=== PATIENT | male | born 1980 | race Two or more races ===

== ENCOUNTER 2022-12-14 16:44 | Inpatient (IN) | payer OTHER ==
[~2022-12-14] VITALS: Ht 180.3 cm; Wt 75.0 kg
[2022-12-14] MEDS ORDERED: LORazepam 2 MG/ML VIAL IVP ONE (17:15)
[2022-12-14] MEDS ORDERED: ONDANSETRON HCL 4 MG/2 ML VIAL IVP ONE (17:15)
[2022-12-14] MEDS ORDERED: SODIUM CHLORIDE 0.9% 1,000 ML IV ONE ×2 (17:15→19:15)
[2022-12-14 17:47] LABS: BASOPHILS % (AUTO) 0.2 % (0.0-2.0); EOSINOPHILS % (AUTO) 0.1 % (1.0-6.0); HEMATOCRIT 38.9 % (41-53); HEMOGLOBIN 13.4 g/dL (13.5-17.5); LYMPHOCYTES # (AUTO) 1.5 K/uL (1.0-4.8); LYMPHOCYTES % (AUTO) 17.4 % (22.0-44.0); MEAN CORPUSCULAR HEMOGLOBIN 31.4 pg (26.0-34.0); MEAN CORPUSCULAR HGB CONC 34.5 G/dL (31.0-37.0); MEAN CORPUSCULAR VOLUME 91 fL (80-100); MONOCYTES # (AUTO) 0.4 K/uL (0.1-1.0); MONOCYTES % (AUTO) 4.5 % (2.0-9.0); NEUTROPHILS # (AUTO) 6.6 K/uL (1.8-7.7); NEUTROPHILS % (AUTO) 77.8 % (40.0-70.0); PLATELET COUNT (AUTO) 261 K/uL (150-450); RED BLOOD CELL COUNT(AUTO) 4.28 MIL/uL (4.50-5.90)
[2022-12-14 17:53] LABS: AMPHET/METH SCREEN,URINE NEGATIVE (NEGATIVE); BARBITURATE SCREEN, URINE NEGATIVE (NEGATIVE); BENZODIAZEPINES SCREEN,URINE NEGATIVE (NEGATIVE); CANNABINOID SCREEN,URINE NEGATIVE (NEGATIVE); COCAINE SCREEN,URINE NEGATIVE (NEGATIVE); METHADONE SCREEN, URINE NEGATIVE (NEGATIVE); OPIATE SCREEN,URINE NEGATIVE (NEGATIVE); PHENCYCLIDINE SCREEN,URINE NEGATIVE (NEGATIVE)
[2022-12-14 17:54] LABS: ANION GAP 12 mmol/L (8-16); CALCIUM, TOTAL 9.2 mg/dL (8.8-10.5); CARBON DIOXIDE 27 mmol/L (22-29); CHLORIDE 92 mmol/L (98-107); CREATININE 0.65 mg/dL (0.60-1.30); GLOMERULAR FILTR. RATE CALC > 60 mL/min (>60); GLUCOSE,RANDOM 100 mg/dL (70-110); POTASSIUM 3.9 mmol/L (3.5-5.1); SODIUM SERUM 131 mmol/L (136-145)
[2022-12-14 18:00] LABS: ALANINE AMINOTRANSFERASE 35 U/L (12-78); ALKALINE PHOSPHATASE 94 U/L (46-116); ASPARTATE AMINOTRANSFERASE 42 U/L (15-37); BILIRUBIN,TOTAL 0.8 mg/dL (0.1-1.0); TOTAL PROTEIN, SERUM 7.3 g/dL (6.4-8.2)
[2022-12-14] MEDS ORDERED: ACETAMINOPHEN 325 MG TABLET PO PRN (19:15)
[2022-12-14] MEDS ORDERED: MAGNESIUM HYDROXIDE SUSPENSION 30 ML UDCUP PO PRN (19:15)
[2022-12-14] MEDS ORDERED: ONDANSETRON HCL 4 MG/2 ML VIAL IVP PRN (19:15)
[2022-12-14] MEDS: LORazepam 2 MG/ML VIAL IVP PRN (21:38)
[2022-12-14] MEDS: FAMOTIDINE 20 MG TABLET PO SCH (21:38)
[2022-12-15 03:01] LABS: APPEARANCE,URINE CLEAR (CLEAR); BILIRUBIN,URINE NEGATIVE (NEGATIVE); GLUCOSE, URINE (UA) NEGATIVE (NEGATIVE); KETONES,URINE NEGATIVE (NEGATIVE); LEUKOCYTE ESTERASE ,URINE NEGATIVE (NEGATIVE); NITRATE,URINE NEGATIVE (NEGATIVE); OCCULT BLOOD,URINE NEGATIVE (NEGATIVE); PROTEIN,URINE NEGATIVE (NEGATIVE); SPECIFIC GRAVITIY, URINE 1.007 (1.003-1.030); UROBILINOGEN,URINE <=1.0 mg/dL (<=1.0)
[2022-12-15] MEDS: LORazepam 2 MG/ML VIAL IVP PRN ×3 (05:50→20:11)
[2022-12-15] MEDS ORDERED: TRAZ-257 PO (06:58)
[2022-12-15] MEDS ORDERED: HYDR-3831 PO (06:58)
[2022-12-15] MEDS: MULTIVITAMINS WITH MINERALS, THERAPEUTIC TABLET PO SCH (09:04)
[2022-12-15] MEDS: FAMOTIDINE 20 MG TABLET PO SCH ×2 (09:04→20:11)
[2022-12-15] MEDS: SODIUM CHLORIDE 0.9% 1,000 ML IV SCH ×2 (09:05→22:57)
[2022-12-15 17:30] VITALS: BP 142/88; PULSE 84; RESP 18; TEMP 98
[2022-12-15 19:57] VITALS: BP 143/101; PULSE 67; RESP 20; TEMP 97.5
[2022-12-15 20:49] VITALS: BP 121/89; PULSE 67; RESP 20
[2022-12-15] MEDS: ZOLPIDEM TARTRATE 5 MG TABLET PO PRN (22:56)
[2022-12-16 05:24] VITALS: BP 138/96; PULSE 66; RESP 20; TEMP 98.4
[2022-12-16 07:09] LABS: ANION GAP 10 mmol/L (8-16); CALCIUM, TOTAL 6.7 mg/dL (8.8-10.5); CARBON DIOXIDE 23 mmol/L (22-29); CHLORIDE 110 mmol/L (98-107); CREATININE 0.51 mg/dL (0.60-1.30); GLOMERULAR FILTR. RATE CALC > 60 mL/min (>60); GLUCOSE,RANDOM 76 mg/dL (70-110); POTASSIUM 3.1 mmol/L (3.5-5.1); SODIUM SERUM 143 mmol/L (136-145)
[2022-12-16] MEDS: MULTIVITAMINS WITH MINERALS, THERAPEUTIC TABLET PO SCH (08:02)
[2022-12-16] MEDS: LORazepam 2 MG/ML VIAL IVP PRN (08:02)
[2022-12-16] MEDS: FAMOTIDINE 20 MG TABLET PO SCH ×2 (08:02→20:25)
[2022-12-16] MEDS ORDERED: POTASSIUM CHLORIDE 20 MEQ ER TABLET PO ONE (09:00)
[2022-12-16] MEDS ORDERED: LORazepam 2 MG/ML VIAL IVP PRN (09:00)
[2022-12-16] MEDS: SODIUM CHLORIDE 0.9% 1,000 ML IV SCH ×2 (10:49→23:25)
[2022-12-16] MEDS: NEOMYCIN/BACITRACIN/POLYMYXIN B 30 GM OINTMENT TP SCH (17:59)
[2022-12-16 19:51] VITALS: BP 134/86; PULSE 65; RESP 20; TEMP 98.2
[2022-12-16] MEDS: ZOLPIDEM TARTRATE 5 MG TABLET PO PRN (23:28)
[2022-12-17 04:53] VITALS: BP 124/72; PULSE 57; RESP 19; TEMP 97.9
[2022-12-17] MEDS: MULTIVITAMINS WITH MINERALS, THERAPEUTIC TABLET PO SCH (08:07)
[2022-12-17] MEDS: FAMOTIDINE 20 MG TABLET PO SCH (08:07)
[2022-12-17 08:23] VITALS: BP 138/89; PULSE 58; RESP 18; TEMP 98.3
[2022-12-17] MEDS: NEOMYCIN/BACITRACIN/POLYMYXIN B 30 GM OINTMENT TP SCH (08:25)
[2022-12-17] MEDS ORDERED: FAMO20 PO (10:30)
[2022-12-17] MEDS ORDERED: MULT-248 PO (10:30)
[2022-12-17] MEDS ORDERED: MAGN-169 PO (10:31)
[2022-12-17 10:34] LABS: ANION GAP 2 mmol/L (8-16); CALCIUM, TOTAL 9.2 mg/dL (8.8-10.5); CARBON DIOXIDE 31 mmol/L (22-29); CHLORIDE 103 mmol/L (98-107); CREATININE 0.67 mg/dL (0.60-1.30); GLOMERULAR FILTR. RATE CALC > 60 mL/min (>60); GLUCOSE,RANDOM 75 mg/dL (70-110); POTASSIUM 3.9 mmol/L (3.5-5.1); SODIUM SERUM 136 mmol/L (136-145)
== END 2022-12-17 13:50 | DRG 897 ==
LOC: EMS 17:21 → AHU 18:36 → 6S 12-15 16:16
PROVIDERS: ADMIT Internal Medicine; ATTEND Internal Medicine
DX: F10.139 Alcohol abuse with withdrawal, unspecified (principal); E87.1 Hypo-osmolality and hyponatremia; E87.6 Hypokalemia; R25.1 Tremor, unspecified; F41.9 Anxiety disorder, unspecified; Z90.49 Acquired absence of other specified parts of digestive tract
CPT/HCPCS: 80048; 80053; 80307; 81003; 85025; 99285; G0378; G0480; J2060; J2405; J7030